=== PATIENT | male | born 2000 | race Two or more races ===

== ENCOUNTER 2020-12-22 02:05 | Emergency (ER) | payer SELFPAY ==
[2020-12-22 02:29] VITALS: BP 115/72; PULSE 62; TEMP 97.6; BMI 19.9
== END 2020-12-22 04:19 | disposition home or self-care (01) ==
LOC: JER 02:05
DX: F10.929 Alcohol use, unspecified with intoxication, unspecified (principal)
CPT/HCPCS: 99283-25